=== PATIENT | male | born 1995 | race Caucasian/White ===

== ENCOUNTER 2016-12-07 03:03 | Observation (INO) | payer BC ==
--- NOTE | 2016-12-07 03:25 | ED PDOC ---
Arrival/HPI - General Chief Complaint: Abdominal Pain Time Seen by Provider: 12/07/16 03:22 Historian: Patient - History of Present Illness Narrative History of Present Illness (Text): 12/07/16 03:25 Bello Harris is a 21 year old male, with no significant past medical history , who presents to the ED complaining of abdominal pain. Patient states he has been experiencing intermittent dull RLQ discomfort since yesterday. Patient denies any fever, chills, chest pain, shortness of breath, nausea, vomiting, diarrhea, back pain, neck pain, headache, dizziness, or any other complaints. Time/Duration: < week (yesterday) Symptom Onset: Gradual Symptom Course: Intermittent Activities at Onset: Rest, Light Context: Home Past Medical History - Provider Review Nursing Documentation Reviewed: Yes - Psychiatric Hx Substance Use: No Family/Social History - Physician Review Nursing Documentation Reviewed: Yes Family/Social History: Unknown Family HX Smoking Status: n Hx Alcohol Use: No Hx Substance Use: No Allergies/Home Meds Allergies/Adverse Reactions: Allergies No Known Allergies Allergy (Verified 12/07/16 03:16) Review of Systems - Physician Review All systems were reviewed & negative as marked: Yes - Review of Systems Constitutional: Normal. absent: Fevers Eyes: Normal ENT: Normal Respiratory: Normal. absent: SOB, Cough Cardiovascular: Normal. absent: Chest Pain Gastrointestinal: Abdominal Pain Genitourinary Male: Normal Musculoskeletal: Normal. absent: Back Pain, Neck Pain Skin: Normal. absent: Rash Neurological: Normal. absent: Headache, Dizziness Endocrine: Normal Hemo/Lymphatic: Normal Psychiatric: Normal Physical Exam Vital Signs Reviewed: Yes Vital Signs Temp Pulse Resp BP Pulse Ox 12/07/16 06:56 97.3 F L 88 18 132/74 97 12/07/16 03:13 97.9 F 72 18 132/84 100 Temperature: Afebrile Blood Pressure: Normal Pulse: Regular Respiratory Rate: Normal Appearance: Positive for: Well-Appearing, Non-Toxic, Comfortable Pain Distress: None Mental Status: Positive for: Alert and Oriented X 3 - Systems Exam Head: Present: Atraumatic, Normocephalic Pupils: Present: PERRL Extroacular Muscles: Present: EOMI Conjunctiva: Present: Normal Mouth: Present: Moist Mucous Membranes Neck: Present: Normal Range of Motion Respiratory/Chest: Present: Clear to Auscultation, Good Air Exchange. No: Respiratory Distress, Accessory Muscle Use Cardiovascular: Present: Regular Rate and Rhythm, Normal S1, S2. No: Murmurs Abdomen: Present: Tenderness (right lower abdomen), Normal Bowel Sounds. No: Distention, Peritoneal Signs Back: Present: Normal Inspection Upper Extremity: Present: Normal Inspection. No: Cyanosis, Edema Lower Extremity: Present: Normal Inspection. No: Edema Neurological: Present: GCS=15, CN II-XII Intact, Speech Normal Skin: Present: Warm, Dry, Normal Color. No: Rashes Psychiatric: Present: Alert, Oriented x 3, Normal Insight, Normal Concentration Medical Decision Making ED Course and Treatment: 12/07/16 03:25 Impression: 21 year old male c/o abdominal discomfort. Plan: -- Labs, lipase -- Urinalysis -- IV fluids -- Reassess and disposition Progress Notes: 12/07/16 05:46 Reviewed radiology, CT Abdomen and Pelvis shows: There is subtle stranding adjacent to the anterior margins of the mid ascending colon. There is central fat attenuation. Findings consistent with epiploic appendagitis. 12/07/16 06:[address] Mccord, surgical coder accountant controller, who will evaluate pt. in ED. 12/07/16 07:01 Case was d/w .Pt. to be placed on observation/analgesic treatment of epiploic appendagitis/r/o early appendicitis. Discussed with medical assistant ob gyn .Hospitalist to be notified. - Lab Interpretations Lab Results: 12/07/16 03:40 12/07/16 03:40 Lab Results 12/07/16 03:40: Urine Color Yellow, Urine Appearance Clear, Urine pH 6.0, Ur Specific [place] 1.025, Urine Protein Trace H, Urine Glucose (UA) Negative, Urine Ketones Negative, Urine Blood Negative, Urine Nitrate Negative, Urine Bilirubin Negative, Urine Urobilinogen 0.2, Ur Leukocyte Esterase Negative, Urine RBC 0 - 2, Urine WBC 0 - 2, Ur Epithelial Cells 0 - 2 12/07/16 03:40: WBC 10.2, RBC 4.63, Hgb 15.0, Hct 42.4, MCV 91.6, MCH 32.4, MCHC 35.4, RDW 11.8, Plt Count 282, MPV 8.9 12/07/16 03:40: Sodium 139, Potassium 4.1, Chloride 100, Carbon Dioxide 27, Anion Gap 16, BUN 16, Creatinine 0.7, Est GFR ( Amer) > 60, Est GFR (Non- Af Amer) > 60, Random Glucose 100, Calcium 9.9, Total Bilirubin 0.6, AST 26, ALT 51, Alkaline Phosphatase 52, Total Protein 8.2, Albumin 4.8, Globulin 3.4, Albumin/Globulin Ratio 1.4, Lipase 126 I have reviewed the lab results: Yes - RAD Interpretation Narrative RAD Interpretations (Text): CT Abdomen and Pelvis shows: Lower thorax: No acute findings. ABDOMEN: Liver: No acute findings. No mass. Gallbladder and bile ducts: No acute findings. No calcified stones. No ductal dilation. Pancreas: No acute findings. No mass. No ductal dilation. Spleen: No acute findings. No splenomegaly. Adrenals: No acute findings. No mass. Kidneys and ureters: No acute findings. No solid mass. No hydronephrosis. Stomach and bowel: There is subtle stranding adjacent to the anterior margins of the mid ascending colon. There is central fat attenuation. Appendix: No findings to suggest acute appendicitis. PELVIS: Bladder: No acute findings. No mass. Reproductive: No acute findings. ABDOMEN and PELVIS: Intraperitoneal space: No acute findings. No free air. No significant fluid collection. Bones/joints: No acute fracture. No dislocation. Soft tissues: No acute findings. Vasculature: No acute findings. No abdominal aortic aneurysm. Lymph nodes: No acute findings. No enlarged lymph nodes. IMPRESSION: There is subtle stranding adjacent to the anterior margins of the mid ascending colon. There is central fat attenuation. Findings consistent with epiploic appendagitis. Radiology Orders: 12/07/16 04:37 ABD & PELVIS IV CONTRAST ONLY [CT] Stat Sr. Strategic Sourcing Manager: Radiologist - Medication Orders Current Medication Orders: Sodium Chloride (Sodium Chloride 0.9%) 1,000 mls @ 100 mls/hr IV .Q10H INES Last Admin: 12/07/16 06:40 Dose: 100 mls/hr Discontinued Medications Sodium Chloride (Sodium Chloride 0.9%) 1,000 mls @ 999 mls/hr IV .Q1H1M STA Stop: 12/07/16 04:28 Last Admin: 12/07/16 04:45 Dose: 999 mls/hr Iohexol (Omnipaque 350 100 Ml) Confirm Administered Dose 350 mg .ROUTE .[facility] Stop: 12/07/16 05:14 - Scribe Statement The provider has reviewed the documentation as recorded by the Courtney Bob Provider Scribe Attestation: All medical record entries made by the Scribe were at my direction and personally dictated by me. I have reviewed the chart and agree that the record accurately reflects my personal performance of the history, physical exam, medical decision making, and the department course for this patient. I have also personally directed, reviewed, and agree with the discharge instructions and disposition. Disposition/Present on Arrival - Present on Arrival Any Indicators Present on Arrival: No History of DVT/PE: No History of Uncontrolled Diabetes: No Urinary Catheter: No History of Decub. Ulcer: No History Surgical Site Infection Following: None - Disposition Have Diagnosis and Disposition been Completed?: Yes Diagnosis: Abdominal pain Disposition: HOSPITALIZED Disposition Time: 07:05 Patient Plan: Observation Patient Problems: Current Active Problems Problem Status Onset Abdominal pain Acute Condition: GOOD
[2016-12-07] MEDS: Sodium Chloride 0.9% 1,000 ML IV STA ×2 (03:52→04:45)
[2016-12-07 03:57] LABS: HEMATOCRIT 42.4 % (42.0-52.0); MEAN CELL VOLUME 91.6 fL (80.0-105.0); MEAN CORPUSCULAR HEMOGLOBIN 32.4 pg (25.0-35.0); MEAN CORPUSCULAR HGB CONC 35.4 g/dl (31.0-37.0); MEAN PLATELET VOLUME 8.9 fl (7.0-11.0); RED CELL DISTRIBUTION WIDTH 11.8 % (11.5-14.5); WHITE BLOOD COUNT 10.2 10^3/ul (4.5-11.0)
[2016-12-07 04:06] LABS: ALB/GLOB RATIO 1.4 (1.1-1.8); ALKALINE PHOSPHATASE 52 U/L (38-133); ALT/SGPT 51 U/L (7-56); AST/SGOT 26 U/L (15-59); BILIRUBIN,TOTAL 0.6 mg/dL (0.2-1.3); BLOOD UREA NITROGEN 16 mg/dL (7-21); CALCIUM 9.9 mg/dL (8.4-10.5); CARBON DIOXIDE 27 mmol/L (21-33); CHLORIDE 100 mmol/L (95-110); GFR AFRICAN-AMERICAN > 60; GLUCOSE,RANDOM 100 mg/dL (70-110); LIPASE 126 U/L (23-300); POTASSIUM 4.1 mmol/L (3.6-5.0); SODIUM 139 mmol/L (132-148); TOTAL PROTEIN 8.2 g/dL (5.8-8.3); URINE BILIRUBIN NEGATIVE (NEGATIVE); URINE BLOOD NEGATIVE (NEGATIVE); URINE GLUCOSE (UA) NEGATIVE (NEGATIVE); URINE KETONE NEGATIVE (NEGATIVE); URINE LEUKOCYTE ESTERASE NEGATIVE Leu/uL (NEGATIVE); URINE PROTEIN TRACE mg/dL (<30 mg/dL); URINE UROBILINOGEN 0.2 E.U./dL (<1 E.U./dL)
[2016-12-07 04:11] LABS: URINE APPEARANCE CLEAR (CLEAR); URINE COLOR YELLOW (YELLOW)
[2016-12-07 04:34] LABS: URINE EPITHELIAL CELLS 0 - 2 /hpf (0-5); URINE RBC 0 - 2 /hpf (0-2); URINE WBC 0 - 2 /hpf (0-6)
[2016-12-07] MEDS ORDERED: Sodium Chloride 0.9% 1,000 ML IV SCH (04:45)
[2016-12-07] MEDS ORDERED: Iohexol 350 MG/100 ML VIAL ONE (05:13)
--- NOTE | 2016-12-07 08:36 | CP.PCM.CON ---
History of Present Illness - History of Present Illness History of Present Illness: General Surgery Consult Note for Dr. Cid 21 year old male with no significant past medical history presents to [facility] with right sided abdominal pain. Patient reports the pain started yesterday right before he went to work at 6pm. The pain is located right lower quadrant and it is non radiating. Patient did not try to take any pain medications for the pain. The pain does not improve or exacerbate with movement. Patient did not have associated fever, chill, nausea, vomiting, or diarrhea. No prior history of the same. He does report his sister had similar abdominal pain 1 week ago. Patient report to have normal bowel movement. Patient looked up his symptoms on the internet and was concerned that he might have appendicitis which prompted the patient to come to the ED. CT abdominal in the ED showed inflammatory changes anterior to the ascending colon consistent with epiloic appendagitis. Surgical consultation was requested to evaluate patient's abdominal pain. PMHx: none PSHx: none Allergy: NKDA Social Hx: denies alcohol, tobacco or other drug use Medications: none Review of Systems - Constitutional Constitutional: As Per HPI. absent: Chills, Fever, Weakness - EENT Eyes: As Per HPI. absent: Loss of Vision Ears: As Per HPI. absent: Dizziness Nose/Mouth/Throat: As Per HPI - Cardiovascular Cardiovascular: As Per HPI. absent: Chest Pain, Syncope - Respiratory Respiratory: As Per HPI. absent: Cough, Dyspnea - Gastrointestinal Gastrointestinal: As Per HPI, Abdominal Pain. absent: Constipation, Diarrhea, Nausea, Vomiting - Genitourinary Genitourinary: As Per HPI. absent: Urinary Frequency, Urinary Hesitance, Urinary Urgency - Musculoskeletal Musculoskeletal: As Per HPI - Integumentary Integumentary: As Per HPI - Neurological Neurological: As Per HPI. absent: Syncope - Psychiatric Psychiatric: As Per HPI - Endocrine Endocrine: As Per HPI - Hematologic/Lymphatic Hematologic: As Per HPI Past Patient History - Past Social History Smoking Status: n - PSYCHIATRIC Hx Substance Use: No Meds Allergies/Adverse Reactions: Allergies Allergy/AdvReac Type Severity Reaction Status Date / Time No Known Allergies Allergy Verified 12/07/16 03:16 - Medications Medications: Current Medications Sodium Chloride (Sodium Chloride 0.9%) 1,000 mls @ 100 mls/hr IV .Q10H INES Last Admin: 12/07/16 06:40 Dose: 100 mls/hr Physical Exam - Constitutional Appears: Well, Non-toxic, No Acute Distress - Head Exam Head Exam: ATRAUMATIC, NORMOCEPHALIC - Eye Exam Eye Exam: EOMI, Normal appearance - ENT Exam ENT Exam: Mucous Membranes Moist - Neck Exam Neck exam: Positive for: Normal Inspection - Respiratory Exam Respiratory Exam: NORMAL BREATHING PATTERN. absent: Respiratory Distress - Cardiovascular Exam Cardiovascular Exam: +S1, +S2 - GI/Abdominal Exam GI & Abdominal Exam: Soft. absent: Distended, Guarding, Hernia, Tenderness - Extremities Exam Extremities exam: Positive for: normal inspection - Neurological Exam Neurological exam: Alert, Oriented x3 - Psychiatric Exam Psychiatric exam: Normal Affect, Normal Mood - Skin Skin Exam: Dry, Intact, Normal Color, Warm Results - Vital Signs Recent Vital Signs: Last Vital Signs Temp 97.9 F 12/07/16 07:54 Pulse 88 12/07/16 07:54 Resp 16 12/07/16 07:54 BP 136/62 12/07/16 07:54 Pulse Ox 99 12/07/16 07:54 - Labs Result Diagrams: 12/07/16 03:40 12/07/16 03:40 Assessment & Plan - Assessment and Plan (Free Text) Assessment: 21 year old male with no significant PMHx presents with RLQ abdominal pain Plan: RLQ abdominal pain -No leukocytosis, afebrile -CT showed inflammatory changes anterior to the ascending colon consistent with epiloic appendagitis -Conservative management -IVF -Pain control -Regular diet -D/w attending Dr. Cid
[2016-12-07 09:04] VITALS: BP 115/75; PULSE 72; RESP 20; TEMP 97.5; O2SAT 98
--- NOTE | 2016-12-07 10:41 | CT ---
PROCEDURE: CT Abdomen and Pelvis with contrast HISTORY: abdominal pain COMPARISON: None. TECHNIQUE: Contrast dose: 100 cc of Omni 350 Radiation dose: Total exam DLP = 538 mGy-cm. This CT exam was performed using one or more of the following dose reduction techniques: Automated exposure control, adjustment of the mA and/or kV according to patient size, and/or use of iterative reconstruction technique. FINDINGS: LOWER THORAX: Unremarkable. LIVER: Unremarkable. No gross lesion or ductal dilatation. GALLBLADDER AND BILE DUCTS: Unremarkable. PANCREAS: Unremarkable. No gross lesion or ductal dilatation. SPLEEN: Unremarkable. ADRENALS: Unremarkable. No mass. KIDNEYS AND URETERS: Unremarkable. No hydronephrosis. No solid mass. VASCULATURE: Unremarkable. No aortic aneurysm. BOWEL: Inflammatory changes are seen anterior to the ascending colon. The findings are consistent with epiploic appendagitis. The findings are seen on axial image 95 of series 2 and coronal image 44. APPENDIX: Normal appendix. PERITONEUM: Unremarkable. No free fluid. No free air. LYMPH NODES: Unremarkable. No enlarged lymph nodes. BLADDER: Unremarkable. REPRODUCTIVE: Unremarkable. BONES: No acute fracture. OTHER FINDINGS: The report concurs with the preliminary [facility] report IMPRESSION: Inflammatory changes anterior to the ascending colon consistent with epiploic appendagitis
--- NOTE | 2016-12-07 15:20 | CP.PCM.HP ---
<Dioni Arellano - Last Filed: 12/07/16 15:16> History of Present Illness - History of Present Illness History of Present Illness: CC: Abdominal pain This is a 21 y/o male with no past medical hx presenting with right sided abdominal pain. Patient states pain started around 6pm prior to presentation. Patient localized the pain to the right lower quadrant and right flank. Notes the pain as sharp and relatively constant. He denies any nausea, vomiting or diarrhea. He notes mild constipation over the past day or so. He further denies fever, chills or recent illness, bloody or dark stools. He denies any prior similar experiences. PMH: none PSH: none FH: no hx of colon CA Social hx: denies tobacco use. occasional alcohol use. denies illicit drug use allergies: nkda Present on Admission - Present on Admission Any Indicators Present on Admission: No Review of Systems - Constitutional Constitutional: absent: Chills, Fever, Malaise - EENT Eyes: absent: Blurred Vision, Dry Eye Nose/Mouth/Throat: absent: Nasal Congestion, Nasal Discharge, Sore Throat - Cardiovascular Cardiovascular: absent: Chest Pain, Dyspnea, Palpitations - Respiratory Respiratory: absent: Cough, Dyspnea - Gastrointestinal Gastrointestinal: Abdominal Pain. absent: Coffee Ground Emesis, Diarrhea, Hematochezia, Melena, Nausea, Vomiting - Genitourinary Genitourinary: absent: Dysuria, Hematuria - Musculoskeletal Musculoskeletal: absent: Back Pain, Neck Pain - Neurological Neurological: absent: Dizziness, Numbness, Focal Weakness - Psychiatric Psychiatric: absent: Anxiety, Depression - Endocrine Endocrine: absent: Fatigue, Palpitations Past Patient History - Past Social History Smoking Status: n - PSYCHIATRIC Hx Substance Use: No Meds Home Medications: Home Medication List Medication Instructions Recorded Confirmed Type Ibuprofen [Motrin Tab] 400 mg PO Q6H PRN #20 tab 12/07/16 Rx Allergies/Adverse Reactions: Allergies Allergy/AdvReac Type Severity Reaction Status Date / Time No Known Allergies Allergy Verified 12/07/16 03:16 Physical Exam - Constitutional Appears: Non-toxic, No Acute Distress - Head Exam Head Exam: ATRAUMATIC, NORMOCEPHALIC - Eye Exam Eye Exam: EOMI, PERRL - ENT Exam ENT Exam: Mucous Membranes Moist - Neck Exam Neck exam: Positive for: Full Rom, Normal Inspection - Respiratory Exam Respiratory Exam: Clear to Auscultation Bilateral. absent: Rales, Rhonchi, Wheezes - Cardiovascular Exam Cardiovascular Exam: REGULAR RHYTHM, +S1, +S2 - GI/Abdominal Exam GI & Abdominal Exam: Normal Bowel Sounds, Soft, Tenderness (mild RLQ). absent: Distended, Firm, Guarding, Mass, Rebound - Extremities Exam Extremities exam: Positive for: normal inspection. Negative for: calf tenderness, pedal edema - Neurological Exam Neurological exam: Alert, Oriented x3 - Psychiatric Exam Psychiatric exam: Normal Affect, Normal Mood - Skin Skin Exam: Dry, Warm Results - Vital Signs Recent Vital Signs: Last Vital Signs Temp 97.5 F L 12/07/16 08:52 Pulse 72 12/07/16 08:52 Resp 20 12/07/16 08:52 BP 115/75 12/07/16 08:52 Pulse Ox 98 12/07/16 08:52 - Labs Result Diagrams: 12/07/16 03:40 12/07/16 03:40 Assessment & Plan - Assessment and Plan (Free Text) Assessment: 21 y/o male presenting with acute right sided abdominal pain secondary to epiploic appendagitis as noted on CT abd/pelivs. There is no evidence of acute appendicitis on CT. epiploic appendagitis - NSAIDS for pain - advance diet as tolerated - IVF - surgery consulted - no surgical intervention now or in the future - Zofran for nausea - Protonix 40 IV daily PPX - scd - protonix 40 iv daily Patient seen and discussed with attending. <Pamela Cueva - Last Filed: 12/07/16 15:42> Results - Vital Signs Recent Vital Signs: Last Vital Signs Temp 97.5 F L 12/07/16 08:52 Pulse 72 12/07/16 08:52 Resp 20 12/07/16 08:52 BP 115/75 12/07/16 08:52 Pulse Ox 98 12/07/16 08:52 - Labs Result Diagrams: 12/07/16 03:40 12/07/16 03:40 Attending/Attestation - Attestation I have personally seen and examined this patient.: Yes I have fully participated in the care of the patient.: Yes I have reviewed all pertinent clinical information: Yes Notes (Text): 12/07/16 15:40 21 year old male with no significant past medical history who presents with RLQ pain. CT abd/pelvis showed epiploic appendagitis. Surgery evaluation was appreciated; recommended conservative management and NSAIDs. Will advance diet as tolerated. Possible d/c planning this afternoon/evening if symptoms improve. Mother is at bedside and questions were answered. Pamela Cueva MD Hospitalist.
--- NOTE | 2016-12-07 15:34 | CP.PCM.DIS ---
<Dioni Arellano - Last Filed: 12/07/16 15:35> Provider - Provider Date of Admission: 12/07/16 07:05 Attending physician: Pamela Cueva MD Consults: Surgery - Dr. Mckeon Time Spent in preparation of Discharge (in minutes): 35 Diagnosis - Discharge Diagnosis (1) Abdominal pain Status: Acute Hospital Course - Lab Results Lab Results: Most Recent Lab Values WBC 10.2 10^3/ul (4.5-11.0) 12/07/16 03:40 RBC 4.63 10^6/uL (3.5-6.1) 12/07/16 03:40 Hgb 15.0 gm/dL (14.0-18.0) 12/07/16 03:40 Hct 42.4 % (42.0-52.0) 12/07/16 03:40 MCV 91.6 fL (80.0-105.0) 12/07/16 03:40 MCH 32.4 pg (25.0-35.0) 12/07/16 03:40 MCHC 35.4 g/dl (31.0-37.0) 12/07/16 03:40 RDW 11.8 % (11.5-14.5) 12/07/16 03:40 Plt Count 282 10^3/uL (120.0-450.0) 12/07/16 03:40 MPV 8.9 fl (7.0-11.0) 12/07/16 03:40 Sodium 139 mmol/L (132-148) 12/07/16 03:40 Potassium 4.1 mmol/L (3.6-5.0) 12/07/16 03:40 Chloride 100 mmol/L (95-110) 12/07/16 03:40 Carbon Dioxide 27 mmol/L (21-33) 12/07/16 03:40 Anion Gap 16 (10-20) 12/07/16 03:40 BUN 16 mg/dL (7-21) 12/07/16 03:40 Creatinine 0.7 mg/dL (0.5-1.4) 12/07/16 03:40 Est GFR ( Amer) > 60 12/07/16 03:40 Est GFR (Non-Af Amer) > 60 12/07/16 03:40 Random Glucose 100 mg/dL (70-110) 12/07/16 03:40 Calcium 9.9 mg/dL (8.4-10.5) 12/07/16 03:40 Total Bilirubin 0.6 mg/dL (0.2-1.3) 12/07/16 03:40 AST 26 U/L (15-59) 12/07/16 03:40 ALT 51 U/L (7-56) 12/07/16 03:40 Alkaline Phosphatase 52 U/L (38-133) 12/07/16 03:40 Total Protein 8.2 g/dL (5.8-8.3) 12/07/16 03:40 Albumin 4.8 g/dL (3.0-4.8) 12/07/16 03:40 Globulin 3.4 gm/dL 12/07/16 03:40 Albumin/Globulin Ratio 1.4 (1.1-1.8) 12/07/16 03:40 Lipase 126 U/L (23-300) 12/07/16 03:40 Urine Color Yellow (YELLOW) 12/07/16 03:40 Urine Appearance Clear (CLEAR) 12/07/16 03:40 Urine pH 6.0 (4.7-8.0) 12/07/16 03:40 Ur Specific Miller 1.025 (1.005-1.035) 12/07/16 03:40 Urine Protein Trace mg/dL (<30 mg/dL) H 12/07/16 03:40 Urine Glucose (UA) Negative mg/dL (NEGATIVE) 12/07/16 03:40 Urine Ketones Negative mg/dL (NEGATIVE) 12/07/16 03:40 Urine Blood Negative (NEGATIVE) 12/07/16 03:40 Urine Nitrate Negative (NEGATIVE) 12/07/16 03:40 Urine Bilirubin Negative (NEGATIVE) 12/07/16 03:40 Urine Urobilinogen 0.2 E.U./dL (<1 E.U./dL) 12/07/16 03:40 Ur Leukocyte Esterase Negative Jessy/uL (NEGATIVE) 12/07/16 03:40 Urine RBC 0 - 2 /hpf (0-2) 12/07/16 03:40 Urine WBC 0 - 2 /hpf (0-6) 12/07/16 03:40 Ur Epithelial Cells 0 - 2 /hpf (0-5) 12/07/16 03:40 - Hospital Course Hospital Course: This is a 21 y/o male with no past medical hx presenting with right sided abdominal pain. Patient states pain started around 6pm prior to presentation. Patient localized the pain to the right lower quadrant and right flank. Notes the pain as sharp and relatively constant. He denies any nausea, vomiting or diarrhea. He notes mild constipation over the past day or so. He further denies fever, chills or recent illness, bloody or dark stools. He denies any prior similar experiences. CT abd/pelvis revealed epiploic appendagitis without evidence of acute appendicitis. General surgery was consulted and determined the patient did not clinically show signs of acute appendicitis. No surgical intervention is indicated for the diagnosis of epiploic appendagitis. The patient's pain was controlled with Motrin. The patient had a good appetite and tolerated a regular diet. Patient was discharged with instructions to continue to take Motrin for pain. He was instructed to f/u with his PCP within one week. He was instructed to return if he experienced worsening sx. Discharge Exam - Head Exam Head Exam: ATRAUMATIC, NORMOCEPHALIC - Eye Exam Eye Exam: EOMI, PERRL - ENT Exam ENT Exam: Mucous Membranes Moist - Respiratory Exam Respiratory Exam: Clear to PA & Lateral. absent: Rales, Rhonchi, Wheezes - Cardiovascular Exam Cardiovascular Exam: REGULAR RHYTHM, +S1, +S2 - GI/Abdominal Exam GI & Abdominal Exam: Normal Bowel Sounds, Soft. absent: Distended, Firm, Guarding, Rebound, Tenderness - Extremities Exam Extremities exam: full ROM, pedal pulses present - Neurological Exam Neurological exam: Alert, Oriented x3 - Psychiatric Exam Psychiatric exam: Normal Affect, Normal Mood - Skin Skin Exam: Dry, Warm Discharge Plan - Discharge Medications Prescriptions: RX: Ibuprofen [Motrin Tab] 400 mg PO Q6H PRN #20 tab PRN Reason: mild pain - Follow Up Plan Condition: GOOD Disposition: HOME/ ROUTINE Instructions: Acute Abdominal Pain (DC) Additional Instructions: Please see your primary care physician within one week for further evaluation and management of your abdominal pain. You may take Motrin (ibuprofen) 400mg every 6 hours as needed for pain. If your symptoms worsen or change please return to the ER. <Pamela Cueva - Last Filed: 12/07/16 15:44> Provider - Provider Date of Admission: 12/07/16 07:05 Attending physician: Pamela Cueva MD Hospital Course - Lab Results Lab Results: Most Recent Lab Values WBC 10.2 10^3/ul (4.5-11.0) 12/07/16 03:40 RBC 4.63 10^6/uL (3.5-6.1) 12/07/16 03:40 Hgb 15.0 gm/dL (14.0-18.0) 12/07/16 03:40 Hct 42.4 % (42.0-52.0) 12/07/16 03:40 MCV 91.6 fL (80.0-105.0) 12/07/16 03:40 MCH 32.4 pg (25.0-35.0) 12/07/16 03:40 MCHC 35.4 g/dl (31.0-37.0) 12/07/16 03:40 RDW 11.8 % (11.5-14.5) 12/07/16 03:40 Plt Count 282 10^3/uL (120.0-450.0) 12/07/16 03:40 MPV 8.9 fl (7.0-11.0) 12/07/16 03:40 Sodium 139 mmol/L (132-148) 12/07/16 03:40 Potassium 4.1 mmol/L (3.6-5.0) 12/07/16 03:40 Chloride 100 mmol/L (95-110) 12/07/16 03:40 Carbon Dioxide 27 mmol/L (21-33) 12/07/16 03:40 Anion Gap 16 (10-20) 12/07/16 03:40 BUN 16 mg/dL (7-21) 12/07/16 03:40 Creatinine 0.7 mg/dL (0.5-1.4) 12/07/16 03:40 Est GFR ( Amer) > 60 12/07/16 03:40 Est GFR (Non-Af Amer) > 60 12/07/16 03:40 Random Glucose 100 mg/dL (70-110) 12/07/16 03:40 Calcium 9.9 mg/dL (8.4-10.5) 12/07/16 03:40 Total Bilirubin 0.6 mg/dL (0.2-1.3) 12/07/16 03:40 AST 26 U/L (15-59) 12/07/16 03:40 ALT 51 U/L (7-56) 12/07/16 03:40 Alkaline Phosphatase 52 U/L (38-133) 12/07/16 03:40 Total Protein 8.2 g/dL (5.8-8.3) 12/07/16 03:40 Albumin 4.8 g/dL (3.0-4.8) 12/07/16 03:40 Globulin 3.4 gm/dL 12/07/16 03:40 Albumin/Globulin Ratio 1.4 (1.1-1.8) 12/07/16 03:40 Lipase 126 U/L (23-300) 12/07/16 03:40 Urine Color Yellow (YELLOW) 12/07/16 03:40 Urine Appearance Clear (CLEAR) 12/07/16 03:40 Urine pH 6.0 (4.7-8.0) 12/07/16 03:40 Ur Specific Miller 1.025 (1.005-1.035) 12/07/16 03:40 Urine Protein Trace mg/dL (<30 mg/dL) H 12/07/16 03:40 Urine Glucose (UA) Negative mg/dL (NEGATIVE) 12/07/16 03:40 Urine Ketones Negative mg/dL (NEGATIVE) 12/07/16 03:40 Urine Blood Negative (NEGATIVE) 12/07/16 03:40 Urine Nitrate Negative (NEGATIVE) 12/07/16 03:40 Urine Bilirubin Negative (NEGATIVE) 12/07/16 03:40 Urine Urobilinogen 0.2 E.U./dL (<1 E.U./dL) 12/07/16 03:40 Ur Leukocyte Esterase Negative Jessy/uL (NEGATIVE) 12/07/16 03:40 Urine RBC 0 - 2 /hpf (0-2) 12/07/16 03:40 Urine WBC 0 - 2 /hpf (0-6) 12/07/16 03:40 Ur Epithelial Cells 0 - 2 /hpf (0-5) 12/07/16 03:40 Attending/Attestation - Attestation I have personally seen and examined this patient.: Yes I have fully participated in the care of the patient.: Yes I have reviewed all pertinent clinical information, including history, physical exam and plan: Yes Notes (Text): 12/07/16 15:43 21 year old male with no significant past medical history who presents with RLQ pain. CT abd/pelvis showed epiploic appendagitis. He was seen by surgery who recommended conservative management and NSAIDs. Diet was advanced which he tolerated. Pain also significantly improved. Patient will be discharged home to follow up with pmd. Pamela Cueva MD Hospitalist.
== END 2016-12-07 18:42 | disposition home or self-care (01) ==
LOC: ED 03:03 → ERH 07:05 → 5RNO 08:27
PROVIDERS: ADMIT Internal Medicine; ATTEND Internal Medicine
DX: R10.31 Right lower quadrant pain (principal); K59.00 Constipation, unspecified
CPT/HCPCS: 74177; 80053; 81001; 83690; 85027; 96360; 99285; G0378; J7040; Q9967